=== PATIENT | male | born 1985 | race Caucasian/White ===

== ENCOUNTER 2022-03-20 00:48 | Emergency (ER) | payer SELFPAY ==
[~2022-03-20] VITALS: Ht 170.2 cm; Wt 79.0 kg
[2022-03-20] MEDS ORDERED: BACITRACIN ZINC OINT UDPKT TOP ONE (01:45)
[2022-03-20] MEDS ORDERED: TETANUS, DIPHTHERIA, PERTUSSIS VAC/PF 0.5ML (>10YR OLD) IM ONE (01:45)
[2022-03-20] MEDS ORDERED: IBUPROFEN 600MG TABLET PO ONE (01:45)
[2022-03-20 02:16] VITALS: BP 144/71
[2022-03-20] MEDS ORDERED: HYDROCODONE/ACETAMINOPHEN 5/325MG TABLET PO NR (02:37)
== END 2022-03-20 02:45 | disposition left against medical advice (07) ==
LOC: ER 00:48
DX: S01.01XA Laceration without foreign body of scalp, initial encounter (principal); Y08.89XA Assault by other specified means, initial encounter; Y93.89 Activity, other specified; Y92.89 Other specified places as the place of occurrence of the external cause; Y99.8 Other external cause status; R07.81 Pleurodynia
CPT/HCPCS: 12002; 71045; 90471; 90715; 99283